=== PATIENT | male | born 1980 | race Caucasian/White ===

== ENCOUNTER → 2020-09-10 10:59 | Outpatient (BNVA) | payer MEDICAID, SELFPAY | PROVIDERS: PCP Internal Medicine; Referring Provider Internal Medicine; Visit Provider Internal Medicine | DX: E29.1 Testicular hypofunction (principal); R53.83 Other fatigue; E55.9 Vitamin D deficiency, unspecified | CPT/HCPCS: 99202 ==

== ENCOUNTER 2020-09-12 08:29 | Outpatient (REF) | payer MEDICAID, SELFPAY ==
[2020-09-12 10:09] LABS: Hematocrit 43.9 % (42-52); Hemoglobin 14.5 g/dl (14.0-18.0)
[2020-09-12 10:31] LABS: Cholesterol 231 mg/dL; HDL Cholesterol 35 mg/dL; Iron 83 mcg/dL (45-160); LDL Cholesterol Calculated 167 mg/dl; Percent Iron Saturation 23 % (15-50); Total Iron Binding Capacity 357 mcg/dL (228-428); Triglycerides 148 mg/dL; Unsaturated Iron Binding 274 ug/dL
[2020-09-12 10:54] LABS: Prostate Specific Antigen 0.67 ng/mL (<0.05-4.0); Thyroid Stimulating Hormone 3.31 uIU/mL (0.32-4.0); Vitamin D 25-OH Total 19.1 ng/mL (>30)
[2020-09-13 12:47] LABS: LDL Cholesterol Direct 179 mg/dL (<100)
[2020-09-15 19:09] LABS: Follicle Stimulating Hormone 2.6 mIU/mL (1.6-8.0); Lutenizing Hormone 1.7 mIU/mL (1.5-9.3); Prolactin 10.3 ng/mL (2.0-18.0)
[2020-09-16 17:52] LABS: Testosterone, Free 48.5 pg/mL (35.0-155.0); Testosterone, Total 208 ng/dL (250-1100)
[2020-09-16 21:41] LABS: Sex Hormone Binding Globulin 15 nmol/L (10-50)
== END 2020-09-12 08:30 | disposition home or self-care (01) ==
LOC: HO.10HDL 08:29
PROVIDERS: Visit Provider Internal Medicine
DX: E29.1 Testicular hypofunction (principal); E55.9 Vitamin D deficiency, unspecified
CPT/HCPCS: 36415; 80061; 82306; 83001; 83002; 83540; 83721; 84146; 84153; 84270; 84402; 84403; 84439; 84443; 85014; 85018

== ENCOUNTER → 2020-10-30 14:31 | Outpatient (BNVA) | payer MEDICAID, SELFPAY | PROVIDERS: PCP Internal Medicine; Referring Provider Internal Medicine; Visit Provider Internal Medicine | DX: Z76.89 Persons encountering health services in other specified circumstances (principal) ==

== ENCOUNTER → 2021-01-26 15:36 | Outpatient (BNVA) | payer MEDICAID, SELFPAY | PROVIDERS: PCP Internal Medicine; Visit Provider Internal Medicine ==

== ENCOUNTER 2021-02-05 09:19 | Outpatient (REF) | payer MEDICAID, SELFPAY ==
[2021-02-05 11:00] LABS: Cholesterol 219 mg/dL; HDL Cholesterol 33 mg/dL; LDL Cholesterol Calculated 157 mg/dl; Triglycerides 146 mg/dL
[2021-02-05 11:23] LABS: Free T4 (Free Thyroxine) 0.76 ng/dL (0.71-1.85); Thyroid Stimulating Hormone 2.52 uIU/mL (0.32-4.0); Vitamin D 25-OH Total 43.5 ng/mL (>30)
[2021-02-06 06:16] LABS: Sex Hormone Binding Globulin 15 nmol/L (10-50)
[2021-02-06 07:51] LABS: LDL Cholesterol Direct 162 mg/dL (<100)
[2021-02-10 14:21] LABS: Testosterone, Free 63.9 pg/mL (35.0-155.0); Testosterone, Total 244 ng/dL (250-1100)
== END 2021-02-05 09:20 | disposition home or self-care (01) ==
LOC: HO.10HDL 09:19
PROVIDERS: Visit Provider Internal Medicine
DX: E55.9 Vitamin D deficiency, unspecified (principal); E29.1 Testicular hypofunction
CPT/HCPCS: 36415; 80061; 82306; 83721; 84270; 84402; 84403; 84439; 84443

== ENCOUNTER → 2021-03-19 09:50 | Outpatient (BNVA) | payer MEDICAID, SELFPAY | PROVIDERS: PCP Internal Medicine; Visit Provider Internal Medicine ==